=== PATIENT | male | born 1955 | race Caucasian/White ===

== ENCOUNTER → 2017-07-13 | Outpatient (CLI) | payer OTHER | LOC: MRI 07:21 | DX: M16.12 Unilateral primary osteoarthritis, left hip (principal) ==

== ENCOUNTER 2017-08-02 05:21 | Inpatient (IN) | payer OTHER ==
[2017-07-27 13:01] LABS: HEMATOCRIT 42.9 % (42.0-52.0); HEMOGLOBIN 14.9 gm/dL (14.0-18.0); MCH 30.1 pg (26.0-34.0); MCHC 34.6 g/dL (28.0-37.0); MCV 86.9 fL (80.0-100.0); RBC 4.94 mil/uL (4.50-6.00); RDW 15.1 % (10.5-14.5)
[2017-07-27 13:06] LABS: ALBUMIN 4.1 g/dL (3.4-5.0); CALCIUM 9.5 mg/dL (8.5-10.1); CREATININE 0.8 mg/dL (0.7-1.3); POTASSIUM 4.5 mmol/L (3.5-5.1)
[2017-07-27 13:12] LABS: URINE BILIRUBIN NEGATIVE (Negative); URINE BLOOD TRACE (Negative); URINE COLOR YELLOW; URINE GLUCOSE-RANDOM* NEGATIVE (Negative); URINE KETONES NEGATIVE (Negative); URINE NITRITE NEGATIVE (Negative); URINE PROTEIN (DIPSTICK) NEGATIVE (Negative); URINE UROBILINOGEN 0.2 E.U./dl (0.2-1.0)
[2017-07-27 13:14] LABS: INR 3.2; PROTIME 32.5 Seconds (9.3-11.4)
[2017-07-29 01:11] LABS: GLYCOHEMOGLOBIN (HGB A1C) 7.7 % (4.8-5.6)
[2017-08-02] VITALS (12 sets, daily range): BP systolic 95–135; BP diastolic 51–74
[~2017-08-02] VITALS: Ht 193 cm; Wt 117.9 kg
--- NOTE | ~2017-08-02 | HC ---
[facility] [place] [address] CONSULTATION Name: HEDY LABOY Room #: 412-P [facility] IN M.R.#: [id number] Admission: 08/02/17 Attend Phys: Guru Nieves MD Discharge: Date of : 55 Report #: [id number] THIS REPORT FOR: //name// CC: CLARK Nieves HISTORY OF PRESENT ILLNESS: The patient is a 61-year-old white male with history of left hip severe degenerative arthritis, unresponsive to conservative measures. He underwent left total hip arthroplasty on 08/02/2017 and is allowed weightbearing as tolerated. He has multiple medical comorbidities as noted above. We are seeing him in rehabilitation medicine consultation. PAST MEDICAL HISTORY: Mechanical aortic valve replacement, history of coronary artery disease with stent x 9, history of hypertension. He had an anterior cervical diskectomy and fusion, noninsulin dependent diabetes mellitus, right great toe partial amputation secondary to osteomyelitis. He had a seizure due to a contrast reaction per report. MEDICATIONS: Please see the full medication listing. ALLERGIES: SULFA. FAMILY HISTORY: Noncontributory. SOCIAL HISTORY: House with his , 4 steps in and then 17 steps up to the full bathroom. There is a half bathroom on the ground floor but no bedroom. 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 The patient premorbidly was ambulatory without gait aids. 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 REVIEW OF SYSTEMS: Did not offer any current complaints of chest pain, shortness of breath or abdominal discomfort. Some pain involving the left hip as expected. He notes he has decreased sensation in distal lower extremities with his diabetic neuropathy. PHYSICAL EXAMINATION: GENERAL: A 61-year-old white male in no obvious distress. VITAL SIGNS: Last recorded temperature 98.3, pulse 85, respirations 18, blood pressure 101/55. The patient is alert, pleasant. HEENT: Appeared to be benign. NEUROLOGIC: Cranial nerves grossly intact. Facies are symmetric. He has functional range of motion of both upper extremities without obvious focal weakness. Midline sternal incision is well healed. Left hip is dressed, ____ is in place. There is no focal calf swelling. He has the prior right great toe partial amputation. He has decreased sensation of the distal lower extremities with decreased proprioception. He is min assist with sit to stand. Gait was 70 feet min assist with a front-wheeled walker. He has not attempted steps yet. [address] [address] CONSULTATION Name: NARDAHEDY Carlton Room #: 412-P [facility] IN [facility].#: [id number] Admission: 08/02/17 Attend Phys: Guru Nieves MD Discharge: Date of : 55 Report #: [id number] ASSESSMENT: A 61-year-old white male with the following problem list: 1. Left hip degenerative arthritis, status post left total hip arthroplasty 08/02/2017, weightbearing as tolerated. 2. Ugn-njxowlb-drenggokr diabetes mellitus with premorbid peripheral neuropathy. 3. Right great toe partial amputation secondary to prior osteomyelitis. 4. Coronary artery disease with stenting x 9. 5. Prior mechanical aortic valve replacement. 6. History of seizure x 1. 7. Anterior cervical diskectomy with fusion. PLAN: Therapy evaluations continue. Insurance will be checked regarding a short acute in-hospital inpatient rehabilitation stay to further maximize his functional independence to get him back home. He does have the multiple medical comorbidities as noted above. Goal will be to further improve his independence. He needs to be able to go up and down steps independently. He is very motivated to work in therapies. Insurance will be checked and we will be glad to follow regarding his rehabilitation therapy needs. By: [id number] Jamar Villa MD /
--- NOTE | ~2017-08-02 | O ---
[facility] [place] [address] OPERATIVE REPORT Name: LABOYHEDY Room #: 150-3 ADM IN M.R.#: [id number] Admission: 08/02/17 Attend Phys: Guru Nieves MD Discharge: Date of : 55 Report #: [id number] THIS REPORT FOR: //name// CC: CLARK Nieves DATE OF SERVICE: 08/02/2017 DATE OF SERVICE: 08/02/2017 PREOPERATIVE DIAGNOSIS: Left hip degenerative joint disease, severe. POSTOPERATIVE DIAGNOSIS: Left hip degenerative joint disease, severe. PROCEDURE: Left total hip arthroplasty. SURGEON: Guru Nieves MD WEB DESIGN SPECIALIST: TSERING Trotter ANESTHETIC: General. INDICATIONS: See hospital H and P. IMPLANTS UTILIZED: We used a Vidal hip system Secur-Fit Max hip stem, 132 degree neck angle, size 9. We used a +5, 36 outer diameter Biolox head. We used a Tritanium hemispherical solid back shell 58 outer diameter and a Trident X3 elevated rim insert. DESCRIPTION OF PROCEDURE: After adequate general anesthesia had been obtained, the patient was placed in lateral decubitus position with left hip up. Left hip and lower extremity was prepped and draped in the usual meticulous sterile fashion. A posterolateral incision was made, subQ divided sharply. Hemostasis obtained with electrocautery. The IT band and gluteal fascia was divided. This layer was retracted with a Charnley retractor. Hip was internally rotated and external rotators were detached at their insertion, tagged and retracted posteriorly. Capsular incision was made. It likewise was tagged and retracted posteriorly. Hip was dislocated. The soft tissues were removed from the base of the neck. A starter awl was placed at the base of neck and advanced to the canal. Canal was sequentially reamed to a size 8. Neck osteotomy performed. We then directed attention to the acetabulum. The acetabulum was circumferentially exposed. Labrum was excised. We sequentially reamed the acetabulum to a size 56, trialled 56 and got a good press fit, so we reamed to 57, irrigated copiously and then placed the shell in the appropriate orientation. The cap screw was placed. Hip was irrigated. Liner was impacted [address] [address] OPERATIVE REPORT Name: LABOYHEDY Room #: 150-3 ADM IN M.R.#: [id number] Admission: 08/02/17 Attend Phys: Guru Nieves MD Discharge: Date of : 55 Report #: [id number] into position with the elevated portion posteriorly. The patient was noted to have osteophytes both anteriorly and posteroinferiorly. These were removed with the saw. Attention was redirected to the femur. The femur was sequentially broached to a size 8. We noticed that there was some was torsional instability, so we reamed up to a 9 and then used a 9 broach and got a good press fit with good torsional stability. Hip was reduced and had good stability parameters, so we irrigated copiously and then impacted the stem into position and impacted the head into position. Hip was then reduced. Meticulous hemostasis was obtained. The capsule and external rotators were reattached to the trochanter by placing drill holes in the trochanter and tying them over a bone bridge. IT band gluteal fascia was closed with combination of interrupted lfgxtw-mf-iufuc #1 Vicryl as well as running #1 Tevdek. SubQ closed with 2-0 Monocryl, skin closed with silvia. Sterile compressive dressing was applied. By: 1354 [id number] Guru Nieves MD /nt
[~2017-08-02 05:21] MED LIST: ASPIR 8181 MG PO; ATORVASTATIN CA40 MG PO; CELEBREX 200 M200 M1 PO; COREG3.125 MG PO; COUMADIN 5 MG TA5 M1 PO; FRAGMIN SQ; GLYBURIDE 2.52.5 MG PO; LISINOPRIL2.5 MG PO; METFORMIN HCL500 MG PO; NITROGLYCERIN0.4 MG SUBLING; NORCO 5-325 TA1 EACH PO; PLAVIX 75 MG TA75 M1 PO; PROTONIX40 M1 PO
[2017-08-02 10:22] LABS: PROTIME 10.4 Seconds (9.3-11.4)
[2017-08-02 20:25] LABS: HEMATOCRIT 37.4 % (42.0-52.0); MCH 30.6 pg (26.0-34.0); MCHC 34.8 g/dL (28.0-37.0); MCV 87.8 fL (80.0-100.0); RBC 4.26 mil/uL (4.50-6.00); RDW 14.7 % (10.5-14.5); WBC 7.8 thou/uL (4.0-11.0)
[2017-08-03] VITALS: BP 98/60
[2017-08-03 04:00] VITALS: BP 98/48
[2017-08-03 06:14] LABS: HEMATOCRIT 35.9 % (42.0-52.0); MCH 29.9 pg (26.0-34.0); MCHC 33.5 g/dL (28.0-37.0); MCV 89.4 fL (80.0-100.0); RBC 4.02 mil/uL (4.50-6.00); WBC 6.7 thou/uL (4.0-11.0)
[2017-08-03 06:28] LABS: CALCIUM 8.5 mg/dL (8.5-10.1); CREATININE 1.2 mg/dL (0.7-1.3); MAGNESIUM 1.6 mg/dL (1.8-2.4); POTASSIUM 4.9 mmol/L (3.5-5.1); PROTIME 10.2 Seconds (9.3-11.4)
[2017-08-03 07:52] VITALS: BP 101/55
[2017-08-03 20:00] VITALS: BP 121/57
[2017-08-04 04:00] VITALS: BP 110/59
[2017-08-04 06:19] LABS: HEMATOCRIT 32.9 % (42.0-52.0); HEMOGLOBIN 11.3 gm/dL (14.0-18.0); MCH 30.2 pg (26.0-34.0); MCHC 34.4 g/dL (28.0-37.0); MCV 87.9 fL (80.0-100.0); RBC 3.75 mil/uL (4.50-6.00); RDW 14.8 % (10.5-14.5); WBC 6.1 thou/uL (4.0-11.0)
[2017-08-04 06:23] LABS: PROTIME 10.7 Seconds (9.3-11.4)
[2017-08-04 07:55] VITALS: BP 126/59
[2017-08-04] MEDS ORDERED: ENOXAPARIN30 MG/0.1 SUBQ (15:12)
[2017-08-04] MEDS ORDERED: COUMADIN 4 MG TA4 M1 PO (15:13)
[2017-08-04] MEDS ORDERED: COLACE 100 MG100 MG PO (15:22)
[2017-08-04] MEDS ORDERED: LACTULOSE20 GM/30 M PO (15:22)
== END 2017-08-04 15:52 | DRG 470 ==
LOC: TBA 05:21 → PRE 07:56 → 4N 16:35 → ENTRNSPT 08-04 15:38 → EDTRNSPTSTS 08-04 15:46 → 4N 08-04 15:52
PROVIDERS: Internal Medicine; Orthopaedic Surgery
PROC: 0SRB03Z Replacement of Left Hip Joint with Ceramic Synthetic Substitute, Open Approach (ICD-10-PCS; principal; 2017-08-02)
DX: M16.12 Unilateral primary osteoarthritis, left hip (principal); I25.10 Atherosclerotic heart disease of native coronary artery without angina pectoris; I10 Essential (primary) hypertension; E11.9 Type 2 diabetes mellitus without complications; K59.00 Constipation, unspecified; Z95.2 Presence of prosthetic heart valve; Z95.5 Presence of coronary angioplasty implant and graft; Z89.411 Acquired absence of right great toe; Z88.2 Allergy status to sulfonamides; Z98.1 Arthrodesis status
CPT/HCPCS: 10790; 50010; 50101; 50382; 50414; 50455; 50612; 50855; 50939; 51412; 51771; 53000; 55388; 56521; 56525; 56527; 56530; 57095; 62110; 62900; 70005

== ENCOUNTER 2017-08-04 10:20 | Inpatient (IN) | payer OTHER ==
[~2017-08-04] VITALS: Ht 193 cm; Wt 122.0 kg
--- NOTE | ~2017-08-04 | HC ---
[facility] [place] [address] CONSULTATION Name: HEDY LABOY Brandt Room #: 516-1 ADM IN M.R.#: [id number] Admission: 08/04/17 Attend Phys: Jamar Villa MD Discharge: Date of : 55 Report #: [id number] THIS REPORT FOR: //name// CC: Jamar PHIPPS DATE OF SERVICE: 08/06/2017 Neurobehavioral Status Exam: ATTENDING PHYSICIAN: Jamar Villa MD. EMBOSSING UNIT OPERATOR: Randall Nixon, PhD. CLINICAL PRESENTATION: The patient is a 61-year-old male admitted to the rehab unit at [facility] for comprehensive inpatient rehabilitation program to improve functional mobility and activities of daily living and self-care secondary to impairment as a result of total hip arthroplasty. The patient carries a diagnoses that includes eax-pfefvmd-ytngwklvh diabetes mellitus with peripheral neuropathy, right greater toe partial amputation secondary to prior osteomyelitis, coronary artery disease with stenting x 9, prior mechanical aortic valve replacement, history of seizure x 1 and an anterior cervical diskectomy with . A complete description of his medical condition and history can be found in his medical record. Neuropsychological consultation was requested to provide assistance in the assessment of cognitive and emotional status and to provide recommendations and services. Prior to this most recent admission, the patient was living independently with his in their home. He has two children. 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 He is a college graduate. The patient does not report a history of treatment for anxiety or depression. TECHNIQUES UTILIZED: Clinical interview, review of medical records, staff consultation and behavioral observation, mini mental status exam 2 standard version and clock drawing. EXAMINATION FINDINGS: The patient was alert and cooperative with the assessment. He accurately described events surrounding his admission. There is no evidence of aphasia. His thoughts are logical and goal oriented. There is no evidence of thought disorder. He described his symptoms to include difficulty with sleep and appetite. However, sleep and appetite are both reported as improving. His energy level is reduced. He does not indicate subjective anxiety or depression. He also does not report difficulty with cognitive function. [facility] [address] [place] [address] CONSULTATION Name: NARDAHEDY Room #: 516-1 [facility] IN .R.#: [id number] Admission: 08/04/17 Attend Phys: Jamar Villa MD Discharge: Date of : 55 Report #: [id number] His responses on the MMSE 2 brief version suggest some mild impairment in cognition with deficits in memory and visual spatial organization and writing a sentence. He was at 13 of 16 on the MMSE 2 brief version, which is a T score of 30. His performance on the MMSE 2 standard version was raw score of 25 and a T score of 35, which is a percentile rank of 7 in the borderline range. The patient's clock drawing is within normal limits. His writing of a sentence was not logical sentence and difficulty with drawing was suggested. The patient appears to be presenting with a mild impairment in cognition that can be associated with this further recovery from his hip replacement. At this time, difficulty with memory and visual spatial organization are suggested. DIAGNOSTIC IMPRESSION: Mild neurocognitive disorder, unspecified, without behavior disorder. RECOMMENDATIONS: The patient will benefit from increased assistance upon his return home with the management of medication. Driving should be monitored before a complete return to instrumental activities of daily living. Use of compensatory strategies may be of benefit to assist in the management of memory. Thank you very much for allowing me to provide the consultation on this patient. By: 1405 [id number] Randall Nixon, PhD /nt
--- NOTE | ~2017-08-04 | PLAN ---
[facility] [place] [address] REHAB UNIT PLAN OF CARE Name: LABOYHEDY Room #: 516-1 ADM IN M.R.#: [id number] Admission: 08/04/17 Attend Phys: Jamar Villa MD Discharge: Date of : 55 Report #: [id number] THIS REPORT FOR: //name// CC: Jamar PHIPPS DATE OF SERVICE: 08/06/2017 PROGRESS NOTE/OVERALL PLAN OF CARE The patient was seen earlier. Last recorded blood pressure 110/54, last recorded temperature 98.8, pulse 95, respirations 16. He was sleepy, but would arouse. Left hip dressing appeared dry. Transfers contact guard. Gait contact guard is 60 feet front-wheeled walker. Upper body dressing is supervision with lower body dressing min assist. ASSESSMENT: 1. Left hip degenerative arthritis, status post left total hip arthroplasty 08/02/2017, weightbearing as tolerated. 2. Uze-cwgiqov-ayqfdnzzm diabetes mellitus with premorbid peripheral neuropathy. 3. Right great toe partial amputation secondary to prior osteomyelitis. 4. Coronary artery disease with stenting x 9. 5. Prior mechanical aortic valve replacement. 6. History of seizure x 1. 7. Anterior cervical diskectomy with fusion. PLAN: The overall plan of care is based on the preadmission screen, post-admission physician evaluation and information garnered from therapy assessments. 1. Estimated length of stay is probably 7-10 days depending on progress. 2. Medical prognosis is reasonably good. 3. Anticipated interventions includes the interdisciplinary acute inpatient rehabilitation program with PT and OT, rehab nursing regarding medication management, skin care prophylaxis, bowel and bladder issues and nursing education. 4. Anticipated functional outcomes would be for the patient to become modified independent with transfers, mobility and ADLs at a walker level. 5. Discharge destination is back home with family. 6. Expected therapy by discipline includes PT and OT 1-1/2 hours per day each five days a week throughout the duration of the acute inpatient rehabilitation stay. By: 1142 2149 Jamar Villa MD /
--- NOTE | ~2017-08-04 | H ---
[facility] [place] [address] HISTORY AND PHYSICAL Name: NARDAHEDY Room #: 515-P [facility] IN ..#: [id number] Admission: 08/04/17 Attend Phys: Jamar Villa MD Discharge: Date of : 55 Report #: [id number] THIS REPORT FOR: //name// CC: Jamar PHIPPS DATE OF SERVICE: 08/05/2017 HISTORY OF PRESENT ILLNESS: The patient is a 61-year-old white male with history of left hip severe degenerative arthritis, unresponsive to conservative measures. He underwent a left total hip arthroplasty on 08/02/2017 and is allowed weightbearing as tolerated. He has multiple medical comorbidities as noted below. He has been admitted now for acute in-hospital inpatient rehabilitation. PAST MEDICAL HISTORY: Includes mechanical aortic valve replacement, history of coronary artery disease with stent x9, history of hypertension. He had an anterior cervical diskectomy and fusion, non-insulin dependent diabetes mellitus, right great toe partial amputation secondary to osteomyelitis. He had a seizure due to contact reaction per report. MEDICATIONS: Please see the full medication listing. Each of these was individually reconciled upon admission and include the herbals, vitamin supplements, etc. ALLERGIES: SULFA. FAMILY HISTORY: Noncontributory. SOCIAL HISTORY: Lives in a house with his , 4 steps in and then 17 steps up to the full bathroom. There is a half bathroom on the ground floor, but no bedroom. 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 The patient premorbidly was ambulatory without gait aids. 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 REVIEW OF SYSTEMS: No complaints of chest pain, shortness of breath, abdominal discomfort. He had some pain involving the left hip as expected. He does have the premorbid decreased sensation of his distal lower extremities with his diabetic neuropathy. Did not offer any complaints of headache or bowel or bladder changes. PHYSICAL EXAMINATION: GENERAL: A 61-year-old pleasant white male in no obvious distress. The patient is alert, pleasant. VITAL SIGNS: Temperature 98.5, pulse 91, respirations 12, blood pressure 86/53. HEENT: Appeared to be benign. Cranial nerves are [place] [address] HISTORY AND PHYSICAL Name: HEDY LABOY Brandt Room #: 515-[facility] IN [facility].#: [id number] Admission: 08/04/17 Attend Phys: Jamar Villa MD Discharge: Date of : 55 Report #: [id number] symmetric. CHEST: Sounded clear to auscultation. Midline sternal incision is intact. CARDIOVASCULAR: Sounded regular rate and rhythm. ABDOMEN: Bowel sounds positive, nontender. GENITOURINARY AND RECTAL: Deferred. EXTREMITIES: He has functional range of motion of both upper extremities without focal weakness. Lower extremities, he has left hip, which is dressed. There is no focal calf swelling. Left ankle dorsiflexion is at least 4+/5. Left lower extremity strength is probably 4/5. Some discomfort with testing. Right lower extremity strength is a grade 4+/5. He does have decreased distal sensation of the distal lower extremities with decreased proprioception. He has been min assist with basic functional mobility issues and short distance ambulation. ASSESSMENT: A 61-year-old white male with the following problem list: 1. Left hip degenerative arthritis, status post left total hip arthroplasty on 08/02/2017, weightbearing as tolerated. 2. Peg-uuibdyn-jckprlzfe diabetes mellitus with premorbid peripheral neuropathy. 3. Right great toe partial amputation secondary to prior osteomyelitis. 4. Coronary artery disease with stenting x 9. 5. Prior mechanical aortic valve replacement. 6. History of seizure x 1. 7. Anterior cervical diskectomy with effusion. PLAN: The patient is admitted for acute in-hospital inpatient rehabilitation. From a post-admission physician evaluation perspective, there are no relevant changes since the preadmission screening. Please see the above review of prior and current medical and functional conditions and comorbidities. Please see the patient's previous and current functional status. As far as risk of complications, the patient has multiple medical comorbidities as noted above. Initial plan of care involves the interdisciplinary acute inpatient rehabilitation program with the goal of maximizing the patient's functional independence. Measurable functional goals would be for him to become modified independent with transfers, mobility, ADLs, so that he can return back to the home setting. Prognosis is reasonably good. We would anticipate a length of stay of probably around 7-10 days, pending progress. Potential barriers would include his multiple medical comorbidities and decreased functional status. By: 0920 0949 Jamar Villa MD /
[2017-08-04] MEDS ORDERED: ENOXAPARIN30 MG/0.1 SUBQ (15:12)
[2017-08-04] MEDS ORDERED: COUMADIN 4 MG TA4 M1 PO (15:13)
[2017-08-04] MEDS ORDERED: COLACE 100 MG100 MG PO (15:22)
[2017-08-04] MEDS ORDERED: LACTULOSE20 GM/30 M PO (15:22)
[2017-08-04 16:00] VITALS: BP 86/53
[2017-08-04 22:41] VITALS: BP 117/68
[2017-08-05 06:20] LABS: HEMATOCRIT 31.8 % (42.0-52.0); HEMOGLOBIN 11.2 gm/dL (14.0-18.0); MCH 31.1 pg (26.0-34.0); MCHC 35.1 g/dL (28.0-37.0); MCV 88.4 fL (80.0-100.0); RBC 3.6 mil/uL (4.50-6.00); RDW 14.8 % (10.5-14.5); WBC 6.2 thou/uL (4.0-11.0)
[2017-08-05 06:31] LABS: INR 1.2; PROTIME 12.2 Seconds (9.3-11.4)
[2017-08-05 06:32] LABS: CALCIUM 8.7 mg/dL (8.5-10.1); POTASSIUM 4.5 mmol/L (3.5-5.1)
[2017-08-05 08:00] VITALS: BP 117/59
[2017-08-06 06:13] LABS: HEMOGLOBIN 11.1 gm/dL (14.0-18.0)
[2017-08-06 06:25] LABS: INR 1.3; PROTIME 13.5 Seconds (9.3-11.4)
[2017-08-06 08:59] VITALS: BP 129/57
[2017-08-06 20:58] VITALS: BP 125/64
[2017-08-07 05:00] LABS: INR 1.5; PROTIME 15.4 Seconds (9.3-11.4)
[2017-08-07 08:20] VITALS: BP 89/53
[2017-08-07 19:47] VITALS: BP 118/77
[2017-08-08 04:07] LABS: INR 1.9; PROTIME 19.4 Seconds (9.3-11.4)
[2017-08-08 09:41] VITALS: BP 112/58
[2017-08-08 19:26] VITALS: BP 138/68
[2017-08-09 04:32] LABS: INR 2.4; PROTIME 24.2 Seconds (9.3-11.4)
[2017-08-09 08:30] VITALS: BP 98/58
[2017-08-09 16:15] VITALS: BP 117/68
[2017-08-09 20:30] VITALS: BP 132/58
[2017-08-10 04:09] LABS: ABSOLUTE NEUTROPHILS 3.1 thou/uL (1.4-8.2); BASOPHILS 0.4 % (0.0-2.0); EOSINOPHILS 1.7 % (0.0-3.0); HEMATOCRIT 34.1 % (42.0-52.0); HEMOGLOBIN 11.6 gm/dL (14.0-18.0); LYMPHOCYTES 28.6 % (24.0-44.0); MCH 29.7 pg (26.0-34.0); MCHC 34.1 g/dL (28.0-37.0); MCV 87.3 fL (80.0-100.0); MONOCYTES 11.2 % (1.0-8.0); PLATELET COUNT 239 thou/uL (150-400); POLYS 58.1 % (36.0-66.0); RDW 14.8 % (10.5-14.5); WBC 5.4 thou/uL (4.0-11.0)
[2017-08-10 04:14] LABS: MANUAL DIFF NO
[2017-08-10 04:17] LABS: PROTIME 30.5 Seconds (9.3-11.4)
[2017-08-10 04:23] LABS: ALBUMIN 3.1 g/dL (3.4-5.0); CALCIUM 8.9 mg/dL (8.5-10.1); CREATININE 1.1 mg/dL (0.7-1.3); MAGNESIUM 1.8 mg/dL (1.8-2.4); POTASSIUM 4.6 mmol/L (3.5-5.1); TOTAL BILIRUBIN 0.5 mg/dL (<0.1-1.0); TOTAL PROTEIN 6.8 g/dL (6.4-8.2)
[2017-08-10 07:20] VITALS: BP 110/54
[2017-08-10 08:10] VITALS: BP 110/54
[2017-08-10 08:11] VITALS: BP 110/54
[2017-08-10 10:24] VITALS: BP 110/54
[2017-08-10] MEDS ORDERED: VITAMIN D1000 UNI1 PO (12:02)
[2017-08-10] MEDS ORDERED: COUMADIN 5 MG TA5 M1 PO (12:02)
[2017-08-10] MEDS ORDERED: ZANAFLEX4 MG PO (12:02)
[2017-08-10] MEDS ORDERED: BISACODYL SUPP10 MG RECTAL (12:02)
[2017-08-10] MEDS ORDERED: MIRALAX17 GM PO (12:02)
[2017-08-10] MEDS ORDERED: VITAMIN B-12500 MCG PO (12:02)
== END 2017-08-10 13:59 | disposition home health service (06) | DRG 561 ==
LOC: ENTRNSPT 08-10 13:59
PROVIDERS: Nurse Practitioner; Physical Medicine & Rehabilitation
DX: Z47.1 Aftercare following joint replacement surgery (principal); M16.12 Unilateral primary osteoarthritis, left hip; E11.42 Type 2 diabetes mellitus with diabetic polyneuropathy; G31.84 Mild cognitive impairment of uncertain or unknown etiology; I25.10 Atherosclerotic heart disease of native coronary artery without angina pectoris; I10 Essential (primary) hypertension; M62.838 Other muscle spasm; K59.00 Constipation, unspecified; Z96.642 Presence of left artificial hip joint; K21.9 Gastro-esophageal reflux disease without esophagitis; E53.8 Deficiency of other specified B group vitamins; Z98.1 Arthrodesis status; Z89.411 Acquired absence of right great toe; Z95.2 Presence of prosthetic heart valve; Z95.5 Presence of coronary angioplasty implant and graft; Z88.2 Allergy status to sulfonamides
CPT/HCPCS: 10112

== ENCOUNTER → 2018-08-23 | Outpatient (CLI) | payer OTHER ==
[~2018-08-23] MED LIST changes: +ASPIRIN81 M2 PO; +BISACODYL SUPP10 MG RECTAL; +CARDIZEM CD240 MG PO; +COLACE 100 MG100 MG PO; +COUMADIN 4 MG TA4 M1 PO; +ENOXAPARIN30 MG/0.1 SUBQ; +LACTULOSE20 GM/30 M PO; +MIRALAX17 GM PO; +PACERONE 200 M200 M1 PO; +VITAMIN B-12500 MCG PO; +VITAMIN D1000 UNI1 PO; +ZANAFLEX4 MG PO
[2018-08-23 09:01] LABS: HEMATOCRIT 42.6 % (42.0-52.0); HEMOGLOBIN 14.5 gm/dL (14.0-18.0); MCH 30.2 pg (26.0-34.0); MCHC 34.1 g/dL (28.0-37.0); MCV 88.4 fL (80.0-100.0); RBC 4.82 mil/uL (4.50-6.00); RDW 14.7 % (10.5-14.5)
[2018-08-23 09:24] LABS: ALBUMIN 3.9 g/dL (3.4-5.0); CALCIUM 10.1 mg/dL (8.5-10.1); CREATININE 1.1 mg/dL (0.7-1.3); POTASSIUM 4.8 mmol/L (3.5-5.1); TOTAL BILIRUBIN 0.6 mg/dL (<0.1-1.0); TOTAL PROTEIN 7.9 g/dL (6.4-8.2)
== END ==
LOC: LABMALL 08:30
PROVIDERS: Internal Medicine Cardiovascular Disease
DX: I48.91 Unspecified atrial fibrillation (principal); I25.10 Atherosclerotic heart disease of native coronary artery without angina pectoris; R91.8 Other nonspecific abnormal finding of lung field; Z95.2 Presence of prosthetic heart valve

== ENCOUNTER 2018-09-01 06:34 | Observation (INO) | payer OTHER ==
[~2018-09-01] VITALS: Ht 195.6 cm; Wt 118.8 kg
[2018-09-01] VITALS (11 sets, daily range): BP systolic 100–124; BP diastolic 57–72
--- NOTE | ~2018-09-01 | P ---
[facility] [place] [address] PROCEDURE REPORT Name: HEDY LABOY Room #: 200-I [facility] Tono Gaona#: [id number] Admission: 09/01/18 Attend Phys: Joe Moon MD Discharge: 09/02/18 Date of : 55 Report #: [id number] THIS REPORT FOR: //name// CC: FAM unknown Joe ASHER DATE OF SERVICE: 09/01/2018 PREOPERATIVE DIAGNOSES: 1. Atrial fibrillation. 2. Typical atrial flutter. PROCEDURES PERFORMED: 1. Atrial fibrillation ablation, CPT code 21738. 2. 3D mapping EP, CPT code 60469. 3. Intracardiac echo, CPT code 50655. 4. Focal ablation, CPT code 04473. HISTORY: The patient is a 62-year-old with history of atrial fibrillation, prior endocarditis, status post mechanical aortic valve replacement in 2001 as well as diabetes and coronary artery disease with most recent drug-eluting stent to the PDA in June 2018 who has failed antiarrhythmic drugs and is here for an ablation. ANESTHESIA: The patient underwent general anesthesia with no anesthesia related complications. DESCRIPTION OF PROCEDURE: The patient underwent informed consent. We discussed the details of the procedure including the risks, which include, but not limited to bleeding, vascular damage, cardiac perforation as well as stroke or UT. He understood these risks and is willing to proceed. Given his mechanical aortic valve, we did perform his ablation with a therapeutic INR of 3.9. The patient also received IV antibiotics given his mechanical aortic valve. Next, I obtained access to the right femoral vein x 3, placing an 8-Vincentian, 9-Vincentian and 7-Vincentian short sheath using the modified Seldinger technique. Next, under fluoroscopy, I placed a decapolar catheter easily in the coronary sinus and an intracardiac ultrasound camera into the right atrium. Intracardiac ultrasound was performed and 3D geometry using [employer] Systemsund was created and this was merged with the patient's cardiac CT scan. Next, the patient was systemically heparinized and using an SL1 sheath and a Boston needle, a transseptal was performed. This was straightforward. At baseline, the patient was in atrial flutter with a ventricular cycle length of 565 milliseconds, QRS duration 85 milliseconds and a QT interval of 365 milliseconds. Once in the left atrium, I used the Lasso catheter to create a 3D geometry of the left atrium and all veins [address] [address] PROCEDURE REPORT Name: HEDY LABOY Room #: 200-I [facility] Tono Gaona#: [id number] Admission: 09/01/18 Attend Phys: Joe Moon MD Discharge: 09/02/18 Date of : 55 Report #: [id number] remained active. Next, I exchanged the SL1 sheath for the cryo sheath and placed the cryoablation catheter into the left atrium. The left superior pulmonary vein underwent a total of 3 freezes. The first freeze was stopped at 80 seconds because of low temperatures. The second freeze was of 4 minutes' duration, and the vein isolated within 70 seconds. I performed a second 4-minute freeze as well. I then turned my attention to the left inferior pulmonary vein. I performed a 4-minute and a 3-minute freeze. The left inferior vein isolated within 26 seconds of the first freeze. The right superior pulmonary vein underwent a 4-minute and a 3-minute freeze as well. This vein isolated during the first freeze at 29 seconds. I then turned my attention to the right inferior pulmonary vein. This vein underwent a 4-minute and a 3-minute freeze. This vein isolated within 60 seconds of the first freeze. There was also a right middle pulmonary vein that was quite small and I performed a 4-minute freeze in this vessel and this was isolated as well. Next, I created a repeat voltage map of the left atrium and all the veins were isolated and the isolation was in the form of wide circumferential ablation of the left atrium. I therefore pulled the cryo sheath and ablation catheter into the right atrium. Atrial flutter ablation: The patient presented in atrial flutter with a proximal to distal activation along the coronary sinus catheter. I performed entrainment from the tricuspid annulus at 6'clock and the post-pacing interval minus tachycardia cycle length was 20 milliseconds consistent with cavotricuspid isthmus dependent flutter. Therefore, ablation was performed at 6 o'clock along the tricuspid annulus using an 8 mm Biosense Whipple ablation catheter and a ramp sheath. Ablation was performed at 70 pal and 60 degrees. A continuous drag lesion was performed and there was acute termination of the atrial flutter. The transisthmus conduction time was 140 milliseconds with an activation sequence consistent with bidirectional block. As such, the procedure was concluded. Post ablation, he was in sinus rhythm with a sinus cycle length of 870 milliseconds, SD interval 270 milliseconds, QRS duration 80 milliseconds, QT interval 421 milliseconds. As such, protamine was administered, and once the ACT was within acceptable range, catheters and sheaths were pulled and hemostasis was obtained. I did perform a pxtadx-ps-qtvss suture to the right groin given his anticoagulation status and there were no bleeding complications. CONCLUSIONS: 1. Successful atrial fibrillation ablation with isolation of the pulmonary veins. 2. Successful atrial flutter ablation with evidence of bidirectional block. By: [id number] Joe Moon MD /tushar
[~2018-09-01 06:34] MED LIST changes: -ASPIRIN81 M2 PO; -CARDIZEM CD240 MG PO; -PACERONE 200 M200 M1 PO
[2018-09-01 07:11] LABS: ABSOLUTE NEUTROPHILS 4.3 thou/uL (1.4-8.2); BASOPHILS 0.7 % (0.0-2.0); EOSINOPHILS 1.2 % (0.0-3.0); HEMATOCRIT 43.7 % (42.0-52.0); HEMOGLOBIN 14.9 gm/dL (14.0-18.0); LYMPHOCYTES 21.1 % (24.0-44.0); MCH 30.2 pg (26.0-34.0); MCHC 34.1 g/dL (28.0-37.0); MCV 88.4 fL (80.0-100.0); MONOCYTES 11.9 % (1.0-8.0); PLATELET COUNT 232 thou/uL (150-400); POLYS 65.1 % (36.0-66.0); RBC 4.94 mil/uL (4.50-6.00); RDW 14.9 % (10.5-14.5); WBC 6.6 thou/uL (4.0-11.0)
[2018-09-01] MEDS ORDERED: GLYBURIDE 2.52.5 MG PO (07:13)
[2018-09-01] MEDS ORDERED: PACERONE 200 M200 M1 PO (07:15)
[2018-09-01] MEDS ORDERED: CARDIZEM CD240 MG PO (07:16)
[2018-09-01] MEDS ORDERED: PLAVIX 75 MG TA75 M1 PO (07:16)
[2018-09-01] MEDS ORDERED: ASPIRIN81 M2 PO (07:17)
[2018-09-01 07:27] LABS: APTT 42.7 Seconds (24.5-32.8); CALCIUM 9.8 mg/dL (8.5-10.1); CREATININE 1.2 mg/dL (0.7-1.3); INR 3.9; POTASSIUM 4.3 mmol/L (3.5-5.1); PROTIME 38.7 Seconds (9.3-11.4)
[2018-09-01 07:33] LABS: TOTAL BILIRUBIN 0.7 mg/dL (<0.1-1.0)
[2018-09-02 00:14] VITALS: BP 119/68
[2018-09-02 03:45] VITALS: BP 118/71
[2018-09-02 04:20] LABS: ABSOLUTE NEUTROPHILS 6.2 thou/uL (1.4-8.2); BASOPHILS 0.1 % (0.0-2.0); HEMATOCRIT 38.9 % (42.0-52.0); LYMPHOCYTES 6.3 % (24.0-44.0); MCH 29.6 pg (26.0-34.0); MCHC 33.1 g/dL (28.0-37.0); MCV 89.3 fL (80.0-100.0); MONOCYTES 6.8 % (1.0-8.0); PLATELET COUNT 191 thou/uL (150-400); POLYS 86.8 % (36.0-66.0); RBC 4.35 mil/uL (4.50-6.00); RDW 14.9 % (10.5-14.5); WBC 7.1 thou/uL (4.0-11.0)
[2018-09-02 04:22] LABS: HEMOGLOBIN 12.9 gm/dL (14.0-18.0)
[2018-09-02 04:30] LABS: CREATININE 1.2 mg/dL (0.7-1.3); POTASSIUM 4.9 mmol/L (3.5-5.1)
[2018-09-02 09:20] VITALS: BP 114/69
== END 2018-09-02 11:09 | disposition home or self-care (01) ==
LOC: CATH 06:34 → 2N 06:42 → CATH 11:28 → 2N 09-02 11:09
PROVIDERS: Internal Medicine Cardiovascular Disease
DX: I48.3 Typical atrial flutter (principal); I48.91 Unspecified atrial fibrillation; I25.10 Atherosclerotic heart disease of native coronary artery without angina pectoris; E11.9 Type 2 diabetes mellitus without complications; Z95.5 Presence of coronary angioplasty implant and graft
CPT/HCPCS: 62110; 62900; 70005

== ENCOUNTER 2019-05-23 06:25 | Observation (INO) | payer OTHER ==
[~2019-05-23] VITALS: Ht 193 cm; Wt 123.4 kg
[2019-05-23] VITALS (11 sets, daily range): BP systolic 115–126; BP diastolic 68–76
--- NOTE | ~2019-05-23 | D ---
[facility] [place] [address] DISCHARGE SUMMARY Name: HEDY LABOY Brandt Room #: 217-[facility] MLizzie.#: [id number] Admission: 05/23/19 ������������������ Attend Phys: Joe Moon MD Discharge: ������������������ Date of : 55 Report #: [id number] THIS REPORT FOR: //name// CC: Joe Moon Physician staff JAMAL KING DISCHARGE DIAGNOSIS: Atypical flutter. PROCEDURE PERFORMED: SVT ablation. HISTORY: The patient is a 63-year-old status post AFib ablation, who has had recurrent atypical flutter, who is here for repeat ablation. He underwent a repeat ablation today, where he was found to have isolation of all 4 pulmonary veins and it appeared that he had a mitral annular flutter. Extensive ablation was performed, creating a line of block from the left inferior pulmonary vein to the mitral annulus and then the coronary sinus was isolated. The patient transitioned to several other flutters that I attempted to ablate but could not completely eliminate. As such, the patient was cardioverted. There were no procedural related complications. HOSPITAL COURSE: The patient was monitored in the CCU overnight. On the day of discharge, the patient was doing well. He denied any chest pain, shortness of breath, fevers or chills. PHYSICAL EXAMINATION: GENERAL: He was in no acute distress. HEART: Regular rate and rhythm. LUNGS: Clear to auscultation bilaterally. ABDOMEN: Soft, nontender. GROIN: Showed no significant bruising or hematoma. His telemetry showed sinus rhythm. As such, he was deemed stable for discharge home. He will continue on his same home medications including his warfarin. His INR today was 2.5. We will increase his amiodarone to 400 mg a day for a week and then decrease it to 200 mg daily. He will follow up with my nurse practitioner in 2 weeks and see me in 3 months. ��������������������������������������������� ���������������������������������������� By: ��������������������������������������������� [id number] Joe Moon MD /nt
[~2019-05-23 06:25] MED LIST changes: +ASPIRIN81 M2 PO; +CARDIZEM CD240 MG PO; +COUMADIN7.5 MG PO; +DILTIAZEM 24HR180 M1 PO; +GLYBURIDE 5 MG T5 M1 PO; +LIPITOR80 MG PO; +PACERONE 200 M200 M1 PO
[2019-05-23] MEDS ORDERED: PHENERGAN 25 MG25 M1 PO (07:21)
[2019-05-23] MEDS ORDERED: ASPIR 8181 M1 PO (07:21)
[2019-05-23 07:38] LABS: HEMOGLOBIN 13.4 gm/dL (14.0-18.0); MCH 29.5 pg (26.0-34.0); MCHC 33.5 g/dL (28.0-37.0); MCV 88.3 fL (80.0-100.0); PLATELET COUNT 220 thou/uL (150-400); RBC 4.53 mil/uL (4.50-6.00); RDW 16.2 % (10.5-14.5)
[2019-05-23 07:54] LABS: CALCIUM 9.2 mg/dL (8.5-10.1); CREATININE 1.3 mg/dL (0.7-1.3); POTASSIUM 4.9 mmol/L (3.5-5.1)
[2019-05-23 07:57] LABS: APTT 38.3 Seconds (24.5-32.8); PROTIME 29.3 Seconds (9.3-11.4)
[2019-05-23 07:59] LABS: INR 2.8
[2019-05-23 08:00] LABS: ALBUMIN 3.4 g/dL (3.4-5.0); TOTAL BILIRUBIN 0.4 mg/dL (<0.1-1.0); TOTAL PROTEIN 7.1 g/dL (6.4-8.2)
[2019-05-23 08:25] LABS: ABSOLUTE NEUTROPHILS 4.1 thou/uL (1.4-8.2); ANISOCYTOSIS 1+; METAMYELOCYTES 2 %
--- NOTE | 2019-05-23 18:20 | NUR ---
Received pt from post op, ablation done. VS taken and monitored, stable) Admission completed, diet changed to regular, well tolerated. Pt is under observation. Dressing on the right groin is intact and no drainage or bleeding has been noted. With FC, patent draining light yellow urine Pt at bed rest for 6 hours (2 pm to 8pm) can ambulate 8pm onwards and FC removed as well. No signs or verbalizations of distress has been noted. Anticipated DC is carlos AM. POC followed. is at the bed side.
[2019-05-24 03:52] LABS: ABSOLUTE NEUTROPHILS 7.5 thou/uL (1.4-8.2); BASOPHILS 0.1 % (0.0-2.0); HEMATOCRIT 36.4 % (42.0-52.0); HEMOGLOBIN 12.2 gm/dL (14.0-18.0); LYMPHOCYTES 4.9 % (24.0-44.0); MCHC 33.3 g/dL (28.0-37.0); MONOCYTES 6.8 % (1.0-8.0); PLATELET COUNT 203 thou/uL (150-400); POLYS 88.2 % (36.0-66.0); RBC 4.05 mil/uL (4.50-6.00); RDW 16.3 % (10.5-14.5); WBC 8.5 thou/uL (4.0-11.0)
[2019-05-24 04:01] LABS: INR 2.5; PROTIME 25.8 Seconds (9.3-11.4)
[2019-05-24 04:05] LABS: ALBUMIN 3.2 g/dL (3.4-5.0); CALCIUM 8.2 mg/dL (8.5-10.1); CREATININE 1.3 mg/dL (0.7-1.3); POTASSIUM 4.7 mmol/L (3.5-5.1); TOTAL BILIRUBIN 0.3 mg/dL (<0.1-1.0); TOTAL PROTEIN 6.5 g/dL (6.4-8.2)
[2019-05-24 04:56] VITALS: BP 110/58
--- NOTE | 2019-05-24 05:41 | NUR ---
ASSUMED PT CARE AT 1899. PT ON BED REST UNTIL 2029. VITAL SIGNS STABLE, ASSESSMENT CHARTED. PT COMPLAINED OF THROAT SORENESS/PAIN RATED AT 3, PT REFUSED PAIN MEDICATION. GROIN SITES CLEAN, DRY AND INTACT. PT OFF BEDREST AT 2034, DENTON DISCONTINUED. PT VOIDED WELL AFTER DENTON DISCONTINUED. PT REQUESTED TO TAKE HOME MEDICATION, AZO FOR POST CATH PAIN. HE MENTIONED THAT HE USUALLY TAKES IT AFTER HE HAS A URINARY CATHETER TAKEN OUT. EDUCATION PROVIDED ABOUT TAKEN HOME MEDS. PT INSISTED. PT MONITORED AFTER MEDICATION WAS TAKEN. RESTED WELL THROUGH THE NIGHT. NO FURTHER COMPLAINTS.PROGRESSING TOWARD PLAN OF CARE. WILL CONTINUE TO MONITOR. POSSIBLE DISCHARGE IN AM.
[2019-05-24 07:15] VITALS: BP 111/59
[2019-05-24] MEDS ORDERED: METOPROLOL SUCC50 MG PO (09:57)
[2019-05-24] MEDS ORDERED: PANTOPRAZOLE SO40 M1 PO (09:57)
[2019-05-24 10:41] VITALS: BP 111/59
--- NOTE | 2019-05-24 12:50 | NUR ---
ASSESSMENT DOCUMENTED. PT ALERT AND ORIENTED. VSS. DENIED HAVING PAIN OR DISCOMFORT. FRESH BLOOD NOTED ON THE RIGHT GROIN THIS AM. DRESSING CHANGED. DR. SOFIA AWARE. ORDERS GIVEN TO DISCHARGE PT TO HOME. DISCHARGE INSTRUCTIONS GIVEN TO PT. PT VERBERLIZE UNDERSTANDING.
== END 2019-05-24 13:09 | disposition home or self-care (01) ==
LOC: CATH 06:25 → 2N 14:58 → CATH 15:50 → ENTRNSPT 05-24 12:47 → EDTRNSPTSTS 05-24 12:56 → 2N 05-24 13:09
PROVIDERS: Nurse Practitioner; ADMIT Internal Medicine Cardiovascular Disease
DX: I48.4 Atypical atrial flutter (principal); Z79.899 Other long term (current) drug therapy
CPT/HCPCS: 62110; 62900; 65020; 65040; 70005

== ENCOUNTER 2019-11-05 07:59 | Inpatient (IN) | payer OTHER ==
[2019-10-31 08:53] LABS: HEMATOCRIT 40.3 % (42.0-52.0); HEMOGLOBIN 13.7 gm/dL (14.0-18.0); MCH 30.9 pg (26.0-34.0); MCHC 33.9 g/dL (28.0-37.0); MCV 91.1 fL (80.0-100.0); RBC 4.42 mil/uL (4.50-6.00); RDW 16.4 % (10.5-14.5); WBC 6.8 thou/uL (4.0-11.0)
[2019-10-31 08:58] LABS: ALBUMIN 3.8 g/dL (3.4-5.0); CALCIUM 9.1 mg/dL (8.5-10.1); POTASSIUM 5.4 mmol/L (3.5-5.1)
[2019-10-31 09:45] LABS: PROTIME 58.7 Seconds (9.3-11.4)
[2019-10-31 09:55] LABS: INR 5.7
[2019-10-31 10:45] LABS: URINE BILIRUBIN NEGATIVE (Negative); URINE BLOOD NEGATIVE (Negative); URINE CLARITY CLOUDY; URINE COLOR YELLOW; URINE GLUCOSE-RANDOM* 1+ (Negative); URINE KETONES NEGATIVE (Negative); URINE LEUKOCYTES-REFLEX NEGATIVE (Negative); URINE NITRITE-REFLEX NEGATIVE (Negative); URINE PROTEIN (DIPSTICK) NEGATIVE (Negative); URINE SPECIFIC GRAVITY 1.025 (1.005-1.035)
[2019-10-31 23:10] LABS: GLYCOHEMOGLOBIN (HGB A1C) 7.6 % (4.8-5.6)
[~2019-11-05] VITALS: Ht 193 cm; Wt 117.9 kg
[~2019-11-05 07:59] MED LIST changes: +ASPIR 8181 M1 PO; +METOPROLOL SUCC50 MG PO; +PANTOPRAZOLE SO40 M1 PO; +PHENERGAN 25 MG25 M1 PO
[2019-11-05 09:16] VITALS: BP 133/69
[2019-11-05 10:07] LABS: PROTIME 10.7 Seconds (9.3-11.4)
[2019-11-05 15:35] VITALS: BP 105/61
[2019-11-05 16:07] VITALS: BP 148/78
--- NOTE | 2019-11-05 18:42 | NUR ---
ASSUMED CARE OF THE PT AT 1500. PTS PAIN IS BEING CONTROLLED BY PAIN MEDICATION, SEE EMAR. PT REFUSED PT UNTIL PAIN IS UNDER CONTROL. PT IS A BS AND AND IS BEING CONTROLLED BY SCHEDULED MEDS, SEE EMAR. PT IS REG DIET AND TOLERATED DINNER WELL. KIRA DRESSING, ICE PACK AND KIAR DRESSING IN PLACE. FALL PRECAUTIONS IN PLACE, BED IN THE LOWEST POSITION AND CALL LIGHT IS WITHIN REACH. WILL CONTINUE TO MONITOR THE PT.
[2019-11-05 19:35] VITALS: BP 129/743
[2019-11-06 00:05] VITALS: BP 107/65
--- NOTE | 2019-11-06 05:07 | NUR ---
PT AOX4. PT REPORTS PAIN 6/10 IN RIGHT HIP. PT RECEIVEING SCHEDULED MORPHINE, PRN Q4HR NORCO AND PRN Q4HR OXYCODONE. PT REQUIRES X1 ASST WITH TRANSFERS AND AMBULATION. PT PRESENTS SUPINE WITH ABDUCTOR PILLOW BETWEEN LEGS WHILE IN BED. PT REPORTS LAST URINATION AT 1100, PRIOR TO SURGERY. PT ASSISTED TO USE URINAL, NO OUTPUT. BLADDER SCANNED WITH 800ML. 16FR DENTON PLACED, CATHETER PATENT. PT REPORTS RELIEF WITH CATHETER IN PLACE, BLADDER NONDISTENDED. PT TOLERATING PO INTAKE WITHOUT ISSUE. PT RESTING THROUGHOUT SHIFT WITHOUT INTERRUPTION OR OBSERVATION OF PAIN OR SOA. PT ENCOURAGED TO NOTIFY STAFF FOR ALL CONCERNS. BED IN LOWEST POSITION, CALL LIGHT WITHIN REACH, BED ALARM ON. WILL CONTINUE TO MONITOR.
[2019-11-06 05:15] VITALS: BP 119/63
[2019-11-06 05:55] LABS: HEMATOCRIT 30.6 % (42.0-52.0); HEMOGLOBIN 10.3 gm/dL (14.0-18.0); MCH 30.8 pg (26.0-34.0); MCHC 33.7 g/dL (28.0-37.0); MCV 91.2 fL (80.0-100.0); RBC 3.35 mil/uL (4.50-6.00); RDW 16.4 % (10.5-14.5); WBC 5.9 thou/uL (4.0-11.0)
[2019-11-06 08:00] VITALS: BP 124/71
--- NOTE | 2019-11-06 10:37 | NUR ---
PT. CARE ASSUMED AT 0700. A&Ox4. pt post op day 1. PT. PAIN CONTROLLED WITH MORPHINE XR AND PAIN MEDICATION WITH PT. PT EVALUATION TODAY. PT. ACHS. NEEDED INSULIN WITH BREAKFAST. NO NAUSEA THIS MORNING. NEW ICE PACK PROVIDED. SLIDING SCALE ADDED. IV PATENT WITH NO REDNESS OR SWELLING ORESENT. FLUIDS RUNNING.. DENTON PATENT WITH GOOD OUTPUT. BED LOCKED IN LOW POSITION WITH BED ALARM ON. CALL LIGHT IN REACH
--- NOTE | 2019-11-06 13:16 | NUR ---
ASSESSMENT-PT LIVES AT HOME WITH HIS BUT HAS MANY STEPS IN HIS HOME THAT HE IS CONCERNED ABOUT. HE WOULD LIKE TO HAVE A SHORT STAY ON 5N THEN DC TO HOME WITH OUTPT THERAPY AT [facility]. HIS WOFE WORKS THERE A RN. PT HAS A ROLLER WALKER FROM PREVIOUS SURGERY, BSC, SOCK JESSICA BELLE AND LAURA BENITEZ. FOLLOWING TO ASSIST WITH DC PLANNING. CASE DISCUSSED WITH SLEEPING CAR SERVICE ATTENDANT.
[2019-11-06 18:17] VITALS: BP 85/50
--- NOTE | 2019-11-06 19:18 | NUR ---
ASSUMED CARE OF PT APPROX 1600, VSS, DENIES PAIN. KIRA DRESSING TO RIGHT HIP REMAINS C/D/I, PATIENT HAS SENSATION IN LEG, CAP REFILL WNL, SKIN COLOR APPROPRIATE. NO SIGNS OF DISTRESS. PT ABD DISTENDED AND FIRM, BOWEL SOUND ACTIVE X4, PT DENIES NAUSEA AT THIS TIME. IV IN RIGHT FA. WILL CONTINUE TO MONITOR.
[2019-11-06 20:14] VITALS: BP 94/53
[2019-11-06 23:03] VITALS: BP 96/51
--- NOTE | 2019-11-07 03:39 | NUR ---
ASSUMED PT CARE ON 11/06/19. PT IS A&O X4. THE PT'S BP IS LOW ON THE BASELINE. PT IS LAYING IN THE BED. PT HAS A COMPLAINT OF PAIN AT A LEVEL OF 2 ON THE SCALE OF 1-10. THE PT REFUSED THE MORPHINE BUT TOOK THE REST OF THTE SCHEDULED MEDICATION. PT'S B/S WAS 95 SO THERE WAS NOT INDICATION FOR INSULIN. THE PT'S HAS COMPLAINTS OF CONSTIPATION AND NAUSEA. THE PT WANTED A PROMETHAZINE SUPPOSITORY, THIS WAS ADMINISTERED. I EXPLAINED TO THE PT THAT IF WE GET UP AND WALK IT COULD POSSIBLY HELP WITH THE CONSTIPATION. THE PT REFUSED. HE STATED THAT HE WANTED TO HAVE A BM AND GET SOME REST. THE PT SAID THAT HE IS NO LONGER NAUSEOUS. I CALLED THE DRY BOX OPERATOR AND SHE GAVE A DAILY PRN ORDER FOR MIRALAX AND AN FLEETS ENEMA IF THE MIRALAX IS INEFFECTIVE. I GAVE THE PT THE MIRALAX IN PRUNE JUICE. THE PT HAS NOT HAD A BM YET. THE DRY BOX OPERATOR SAID THAT IF THE PT HAS NOT HAD A BM BY THE MORNING TIME TO GET A KUB. PT IS RESTING IN THE ROOM WITH TH LIGHTS OFF AND THE DOOR SHUT. WILL CONTINUE TO MONITOR.
[2019-11-07 07:19] LABS: CALCIUM 9.1 mg/dL (8.5-10.1); CREATININE 1.3 mg/dL (0.7-1.3); POTASSIUM 4.1 mmol/L (3.5-5.1)
[2019-11-07 07:20] LABS: INR 1.1; PROTIME 11.1 Seconds (9.3-11.4)
[2019-11-07 07:31] VITALS: BP 101/60
[2019-11-07 08:40] LABS: HEMATOCRIT 29.7 % (42.0-52.0); HEMOGLOBIN 9.9 gm/dL (14.0-18.0); MCH 30.4 pg (26.0-34.0); MCHC 33.3 g/dL (28.0-37.0); MCV 91.3 fL (80.0-100.0); RBC 3.26 mil/uL (4.50-6.00); RDW 16.2 % (10.5-14.5)
--- NOTE | 2019-11-07 12:17 | NUR ---
Resumed care at 0700. PT is A&Ox4. He reports feeling full in his abdomen and expressed nausea. PT proceeded to vomit reddish brown emesis, approximately 250cc, after AM medications. PRN zofran was administered IVP to help decrease nausea. Relief noted. Provider was notified. PT was taken down for a KUB via wheelchair. Dr. Wilhelm on floor to assess PT. He ordered for the soto to be discontinued. Nurse removed soto with balloon delflated and intact. PT requested azo to help decrease burning with urination after soto removal. Nurse contacted provider who ordered pyridium to help with urinary comfort. PT is currently resting in bed. His call light is within reach and the bed is locked. Nurse will continue to monitor.
--- NOTE | 2019-11-07 12:26 | NUR ---
SW reviewed chart and spoke with nursing and hospitalist. Pt [facility]. Pt is s/p right ZAMAZM. Pt with abdominal distension earlier today and went for a KUB. SW discussed case with [facility] rehabilitation [facility] manager, as pt and family are intersted in going to [facility] prior to discharge. JANNETTE is following to assist as needed with discharge planning.
--- NOTE | 2019-11-07 14:58 | NUR ---
THIS RN NOTIFIED DR AGUILAR OF BLOOD SUGAR DROPPING TO 43, RECEIVED ORDER TO GIVE 1 AMP OF DEXTROSE. GIVEN ORDERED TO RIGHT FOREARM. WILL RECHECK IN 15 MINUTES.
[2019-11-07 16:29] VITALS: BP 110/58
--- NOTE | 2019-11-07 18:45 | NUR ---
I AGREE WITH NURSING ASSESSMENT AND NURSING NOTE DONE BY NATALYA/SUMAN.
[2019-11-07 20:18] VITALS: BP 105/60
--- NOTE | 2019-11-07 22:14 | NUR ---
Assumed pt care at 1900. Pt is A/OX4.VSS. Pt c/o Nausea, abd still distended and firm. Pt offered enema and agreeable with it,medication administered;pt passed a small BM and a lot gas/belching and verbalizes a little relief. Medicated for nausea and pain at this time,will monitor effectiveness. Blood sugar 53,D5 25ml given and BS up to 207. IV reinserted on RFA.
[2019-11-08 05:55] LABS: HEMATOCRIT 29.4 % (42.0-52.0); HEMOGLOBIN 9.9 gm/dL (14.0-18.0); MCH 30.6 pg (26.0-34.0); MCHC 33.7 g/dL (28.0-37.0); MCV 90.9 fL (80.0-100.0); RBC 3.23 mil/uL (4.50-6.00); RDW 15.7 % (10.5-14.5); WBC 6.3 thou/uL (4.0-11.0)
[2019-11-08 06:18] LABS: INR 1.1; PROTIME 11.4 Seconds (9.3-11.4)
[2019-11-08 07:50] VITALS: BP 117/69
--- NOTE | 2019-11-08 14:02 | NUR ---
SW reviewed chart and spoke with nursing and attending physician. Pt is progressing towards goals for discharge. Discharge home is anticipated for tomorrow. SW discussed case with rehabilitation team lead. Pt is too high level for admission to . Recommendation made for pt to go home with HH. SW met with pt at bedside to discuss discharge plan. Pt is aware and agreeable with HH services. SW provided options for HH. No preference voiced. Pt has [employer] insurance. [facility]. Pt is agreeable with referral to [facility]. Pt lives in [place]. [facility] and notified liaison. Pt has a roller walker and his PCP is Dr. Issa Hammonds. JANNETTE is following to assist as needed with discharge planning.
[2019-11-08 18:29] VITALS: BP 110/64
[2019-11-08 19:16] VITALS: BP 90/51
--- NOTE | 2019-11-08 19:30 | NUR ---
ASSUMED CARE OF PATIENT AT 0715, PATIENT ALERT AND ORIENTED X 4. PATIENT C/O PAIN WITH RIGHT HIP, REFUSED MORPHINE ER THIS AM. PATIENT REFUSED BREAKFAST AND LUNCH, HE HAD CLEAR LIQUIDS FOR BOTH MEALS, AND TOLERATED W/O NAUSEA. PATIENT DID EAT DINNER 100% W/O NAUSEA. BLOOD SUGAR MONITORING ORDERED, LAST BLOOD SUGAR 53, PATIENT HAD DINNER AND GAVE 2 ORANGE JUICES, BLOOD SUGAR RECHECKED AND 124. PATIENT HAS LEFT FOREARM IV WITH D51/2 NS AT 100CC/HR. INR 1.1, COUMADIN 5MG PO GIVEN. PATIENT GIVEN HYDROXYZINE 50 MG PO GIVEN, PATIENT STATES NO RELIEF, BUT WANTS TO WAIT UNTIL LATER FOR MORE PAIN MEDS. AT BEDSIDE AFTER DINNER. WILL CONTINUE TO MONITOR.
--- NOTE | 2019-11-09 02:56 | NUR ---
Assumed pt care at 1900. Pt A/OX4,VSS. Pt c/o pain to right hip hesitant about taking pain meds but encouraged to LOP 8/10 medicated with Percocet with relief reported. Pt complain of nausea, medicated with Promethazine with relief reported at HS. Voiding adequately per urinal. KIRA dsg in place on Right hip C/D/I. Pt encouraged to ambulate before HS but declined. Resting quietly at this time with no distress noted. Call light placed within reach. Fall precautions in place. Will continue to monitor pt.
[2019-11-09 07:25] VITALS: BP 123/70
[2019-11-09 07:30] LABS: INR 1.1; PROTIME 11.4 Seconds (9.3-11.4)
--- NOTE | 2019-11-09 09:18 | NUR ---
DR AGUILAR HERE TO SEE PATIENT STATES TO HAVE PATIENT BE NPO AND HOLD AM MEDS. HE PUT IN CONSULT FOR GI. PT GIVEN ZOFRAN AND B12 IM.
[2019-11-09 14:15] VITALS: BP 113/58
--- NOTE | 2019-11-09 14:18 | NUR ---
DISCHARGE PLANNING. POSSIBLE WEEKEND DISCHARGE. PATIENT DISCHARGING TO HOME WITH [facility]. CALL PLACED TO [facility], SPOKE WITH CORRINE. NOTIFIED OF POSSIBLE WEEKEND DISCHARGE. UNIT CONTACT NUMBER PROVIDED TO HER. [facility] NUMBER [phone] FAX [phone] SHOULD PATIENT DISCHARGE OVER THE WEEKEND, PLEASE FAX COMPLETED DISCHARGE/HOME HEALTH ORDERS AND DISCHARGE SUMMARY TO [facility]. FAX NUMBER LISTED ABOVE. THANK YOU.
--- NOTE | 2019-11-09 14:20 | NUR ---
CALLED CONSULT TO DR RICHARDSON'S OFFICE DR CABEZAS UPKEEP WORKER OFFICE TO LET HIM KNOW ABOUT CONSULT CALLED [phone]
[2019-11-09 14:21] VITALS: BP 123/70
--- NOTE | 2019-11-09 14:32 | NUR ---
SW reviewed chart and spoke with nursing and attending physician. Pt is slowly progressing towards goals for discharge. GI consulted today. Pt may be scoped later today or tomorrow. [facility] on [facility] when discharged. finished goods planner updated intake at to notify of possible weekend discharge. Contact info for HH placed in pt's discharge summary. Final discharge orders/summary will need to be faxed when available. SW is available to assist should needs arise. [facility]---
--- NOTE | 2019-11-09 16:10 | NUR ---
CALLED [facility] AT THIS TIME OFFICE STATED THEY WOULD PAGE DR LOPEZ.
--- NOTE | 2019-11-09 18:45 | NUR ---
DR LOPEZ HERE TO SEE PATIENT WROTE NEW ORDERS SEE CHART.
[2019-11-09 19:30] VITALS: BP 108/60
--- NOTE | 2019-11-10 04:36 | NUR ---
PATIENT ALERT AND ORIENTED X4. AT BEDSIDE IN EARLY EVENING. IVF INFUSING W/O COMPLICATION. BS MONITORED PER ORDER. DRESSING DRY/INTACT. MEDICATED FOR PAIN X2 DURING THE NIGHT WITH GOOD RESULTS. ALSO USING ICE BAG TO RIGHT HIP. SLEPT WELL DURING THE NIGHT. JACQUES HOSE OFF FOR A FEW HOURS DURING THE NIGHT, REPLACED THIS AM. WILL MONITOR.
[2019-11-10 05:36] LABS: INR 1.2; PROTIME 12.2 Seconds (9.3-11.4)
[2019-11-10 06:55] VITALS: BP 112/63
[2019-11-10 09:49] LABS: CALCIUM 8.4 mg/dL (8.5-10.1); CREATININE 0.9 mg/dL (0.7-1.3); MAGNESIUM 1.5 mg/dL (1.8-2.4); POTASSIUM 4.3 mmol/L (3.5-5.1)
[2019-11-10 19:04] VITALS: BP 103/55
--- NOTE | 2019-11-10 19:33 | NUR ---
ASSUMED CARE OF PATIENT AT 0715, PATIENT A&O X 4. PATIENT UP WITH SBA WITH WALKER AND GAIT BELT. PATIENT DENIES PAIN THIS AM, BUT WAS GIVEN TRAMADOL PIOR TO PT, AND HYDROCODONE THIS AFTERNOON PRIOR TO PT, WAS GIVEN TRAMADOL AFTER DINNER PER PATIENT REQUEST WITH GOOD RELIEF ALL 3 TIMES. PATIENT HAS RGHT FOREARM IV WITH D5 1/2 NS AT 100CC/HR. BLOOD SUGAR MONITORING ORDERED, LAST BS 133, NO S/S INSULIN GIVEN. PATIENT VOIDS PER URINAL. NO BM THIS SHIFT, PASSING GAS. PATIENT DIET ADVANCED TO SOFT AT LUNCH AND DINNER, AND TOLERATED W/O DIFFICULTY, NO NAUSEA REPORTED. INR 1.2, COUMADIN 5 MG PO GIVEN. WILL CONTINUE TO MONITOR.
--- NOTE | 2019-11-11 04:33 | NUR ---
PATIENT ALERT AND ORIENTED X4. UP WITH ASSIST OF WALKER. MEDICATED FOR PAIN WITH GOOD RESULTS. BS MONITORED PER ORDER. IVF INFUSING W/O COMPLICATION. DRESSING DRY AND INTACT. PATIENT WASHED HIMSELF UP IN THE BATHROOM AND CHANGED HIS CLOTHES - STATES THAT HE FEELS MUCH BETTER. RESTING QUIETLY. WILL MONITOR.
[2019-11-11 05:34] LABS: INR 1.2; PROTIME 12.7 Seconds (9.3-11.4)
[2019-11-11 08:00] VITALS: BP 100/56
[2019-11-11] MEDS ORDERED: REGLAN10 MG PO (08:39)
[2019-11-11] MEDS ORDERED: TRAMADOL 50 MG50 MG PO (08:39)
[2019-11-11 08:44] VITALS: BP 100/56
--- NOTE | 2019-11-11 16:13 | NUR ---
PT IS AOX4, VSS, PAIN CONTROLLED WITH ORAL PAIN ANALGESIC. DRESSING DRY & INTACT, AMBULATES WITH WALKER. PT TOLERATING REGULAR DIET. PT DISCHARGED HOME WITH , RECEIVED PRESCRIPTIONS, AND D/C INSTRUCTIONS. IV D/C'D AND TRANFERRED TO CAR BY STAFF.
--- NOTE | 2019-11-12 13:07 | NUR ---
PT DISCHARGED OVER WEEKEND DC ORDERS/SUMMARY FAXED TO [facility] SPOKE WITH CHRIS IN INTAKE SHE RECEIVED DC ORDERS AND WILL NOTIFY PT TIME OF VISITS.
--- NOTE | 2019-11-14 08:11 | HC ---
[facility] [place] [address] CONSULTATION Name: HEDY LABOY Room #: 403-P [facility] IN M.R.#: [id number] Admission: 11/05/19 Attend Phys: Guru Cook MD Discharge: 11/11/19 Date of : 55 Report #: [id number] THIS REPORT FOR: //name// CC: Dr. Thu Wilhelm Physician staff JAMAL Cook MD DATE OF SERVICE: 11/09/2019 HISTORY OF PRESENT ILLNESS: The patient is a 64-year-old male with a history of right total hip arthroplasty for arthritis on 11/05/2019. The patient was doing well postoperatively, began having nausea and vomiting. After several days, this has not improved with IV Zofran. He was given one dose of Reglan. He has been on narcotics, but these have now been held for the last approximately 24 hours. He underwent a KUB yesterday showing gaseous distention of the large and small bowel without gross evidence of bowel obstruction. That KUB was done on . Repeat KUB on the shows findings suggestive of improved ileus. There is increased gaseous distention of the stomach, gastric outlet obstruction not excluded. The patient has not had a bowel movement since last Tuesday, but he also of note was given an enema from that time, he has been passing gas. He has been n.p.o. today. He has no further vomiting at this time. He denies any significant abdominal pain. He denies any nausea, vomiting or similar symptoms prior to this hospitalization recently. He underwent an EGD and colonoscopy reportedly earlier this year at [facility]. I do not have a copy of these results, but he states these were basically negative. He denies any recent diarrhea or constipation. He denies any blood in his stools. Currently, denies any chest pain or shortness of breath. No fevers or chills. PAST MEDICAL HISTORY: Right total hip ZAMZAM on 11/05/2019, diabetes type 2, history of AFib, coronary artery disease, history of stents, previous left total hip several years ago. REVIEW OF SYSTEMS: As per HPI. ALLERGIES: SULFA. CURRENT MEDICATIONS: Tylenol p.r.n., tramadol p.r.n., IV fluids, tamsulosin, MiraLax daily, Coumadin, insulin sliding scale, metoprolol, aspirin, Plavix, lisinopril, gabapentin, docusate, Lipitor, diltiazem, metformin, hydroxyzine, oxycodone p.r.n., hydrocodone p.r.n., senna. FAMILY HISTORY: Negative for colon cancer. [address] [address] CONSULTATION Name: HEDY LABOY Room #: 403-P [facility] JOHNNY M.RRosa#: [id number] Admission: 11/05/19 Attend Phys: Guru Cook MD Discharge: 11/11/19 Date of : 55 Report #: [id number] SOCIAL HISTORY: Denies any tobacco, reports occasional alcohol. PHYSICAL EXAMINATION: VITAL SIGNS: Temperature is 97.9, pulse 75, blood pressure 123/70, respiratory rate is 18. GENERAL: He is alert and oriented x 3, in no acute distress. HEENT: Sclerae nonicteric. Oropharynx clear. NECK: Supple, without lymphadenopathy. CARDIOVASCULAR: Regular rate. CHEST: Clear to auscultation anteriorly bilaterally. ABDOMEN: Soft. He has active bowel sounds. He is nontender. He is mildly distended. EXTREMITIES: No cyanosis, clubbing or edema. LABORATORY DATA: From 11/07/2019, sodium 135, potassium 4.1, chloride 100, bicarbonate 26, BUN 16, creatinine 1.3. WBC 6.3, hemoglobin 9.9, platelet count is 194. ASSESSMENT AND PLAN: Nausea and vomiting. Suspect this is secondary to ileus, likely multifactorial, recent surgery, recent narcotics. The patient is nonambulatory at this time. No previous history of nausea, vomiting prior to surgery. KUB consistent with ileus and not obstruction. There is some gaseous distention. He has not responded to Zofran. I would recommend changing Reglan p.r.n. to 10 mg IV q. 6 hours on a scheduled basis and we will start clear liquids at this time. If he has continued symptoms, could consider an upper endoscopy for further evaluation. Of note, he had a normal EGD and colonoscopy within the last year apparently. We will continue to follow. Thank you for allowing me to participate in his care. <ELECTRONICALLY SIGNED> By: Darian Rios MD 11/14/19 0811 [id number] Darian Rios MD /nt
--- NOTE | 2019-11-14 14:33 | O ---
[facility] [place] [address] OPERATIVE REPORT Name: HEDY LABOY Room #: 403-P [facility] IN M.R.#: [id number] Admission: 11/05/19 Attend Phys: Guru Cook MD Discharge: 11/11/19 Date of : 55 Report #: [id number] THIS REPORT FOR: //name// CC: Physician staff JAMAL KING Guru Cook DATE OF SERVICE: 11/05/2019 PREOPERATIVE DIAGNOSIS: Right hip osteoarthritis. POSTOPERATIVE DIAGNOSIS: Right hip osteoarthritis. PROCEDURE: Right total hip arthroplasty. SURGEON: Guru Cook MD PBX SUPERVISOR: Josefina Ochoa PA-C. ANESTHESIA: General. IMPLANTS: Urena and Nephew size 14 high offset Synergy press fit stem, a size 60 R3 acetabular cup with one acetabular screw and a size 40+8 Oxinium head. ESTIMATED BLOOD LOSS: 100 mL. COMPLICATIONS: None. SPECIMENS: None. INDICATIONS FOR PBX SUPERVISOR: Throughout the case, extensive retraction and manipulation of the hip was required. This was afforded to me by my development assistant. INDICATIONS FOR PROCEDURE: The patient is a 64-year-old gentleman with severe right hip osteoarthritis. He had failed conservative measures for this and after discussion with him, he elected for right total hip arthroplasty. DESCRIPTION OF PROCEDURE: Risks, benefits, alternatives, complications were discussed in detail with the patient including but not limited to risk of anesthesia, risk of damage to nerves, arteries, blood vessels, risk for infection, bleeding, risk for continued hip pain, leg length discrepancy, instability and need for reoperation. Informed consent was obtained from the patient. The right hip was appropriately marked in the preoperative holding area. IV Ancef was given for preoperative antibiotics. He was brought to the operating room and placed in supine position on operating room table. General anesthesia was induced without complication. He was then placed in the left [facility] [address] [place] [address] OPERATIVE REPORT Name: NARDAHEDY Room #: 403-P [facility] IN M.R.#: [id number] Admission: 11/05/19 Attend Phys: Guru Cook MD Discharge: 11/11/19 Date of : 55 Report #: [id number] lateral decubitus position with the right hip uppermost. Right hip and lower extremity were prepped and draped in normal sterile fashion. Timeout was performed properly identifying the patient and procedure as well as the instrumentation. All in the operating room were in agreement. Standard posterior approach to the hip was made with 10 blade through the skin. Dissection was taken down to the fascia with Bovie cautery. Malloy elevator was used to clean the fascia and fresh #10 blade was used to make a fascial incision. This was taken proximally and distally with curved Salinas scissor. Charnley retractor was placed. Trochanteric bursa was taken down with Bovie cautery. Piriformis tendon was identified, tagged and taken down with Bovie cautery. Short external rotators were also taken down with Bovie cautery. Capsulotomy was made and capsule ends were tagged for later repair. Hip was dislocated and there was extensive osteoarthritic change in femoral head. Femoral neck cut was made 1 cm proximal to lesser trochanter based on preoperative templating. Femoral head was removed. Deep acetabular retractors were placed. Labrum was removed sharply. Pulvinar was removed with Bovie cautery. Acetabulum was then sequentially reamed up to a size 60, at which point, there was excellent bleeding cancellous bone. This was trialed with a size 59 trial and found to have a good fit. Final size 60 R3 acetabular cup was placed and seated. One acetabular screw was placed for backup fixation and a polyethylene liner for a 40 head was placed. Attention was then turned to the femur. This was reamed and broached up to a size 14, at which point, the size 14 broach was stable, was trialed with a high offset neck and a 40+0 head. Hip was reduced, taken through range of motion, found to be stable, found to have short leg length on the right compared to left. Hip was dislocated and we trialed a +8 neck. Hip was reduced, taken through range of motion, found to be stable, found to have equal leg lengths. Hip was dislocated and broach was removed. Final size 14 high offset Synergy press fit stem was placed and seated. This was then trialled with a 40+8 head. Hip was reduced, taken through range of motion, found to be stable, found to have equal leg lengths. Hip was dislocated one last time and the wound was thoroughly irrigated with saline ____ ropivacaine, epinephrine and Toradol was ____. <ELECTRONICALLY SIGNED> By: Guru Cook MD 11/14/19 1433 1304 [id number] Guru Cook MD /nt
== END 2019-11-11 16:00 | disposition home health service (06) | DRG 470 ==
LOC: PRE 07:59 → TBA 08:35 → PRE 09:38 → 4S 15:06 → PRE 17:59 → 4N 11-06 16:13
PROVIDERS: Hospitalist; Nurse Practitioner Acute Care; ADMIT Orthopaedic Surgery
PROC: 0SR906A Replacement of Right Hip Joint with Oxidized Zirconium on Polyethylene Synthetic Substitute, Uncemented, Open Approach (ICD-10-PCS; principal; 2019-11-05)
DX: M16.11 Unilateral primary osteoarthritis, right hip (principal); I48.92 Unspecified atrial flutter; K56.7 Ileus, unspecified; I25.10 Atherosclerotic heart disease of native coronary artery without angina pectoris; I48.91 Unspecified atrial fibrillation; R33.9 Retention of urine, unspecified; E11.649 Type 2 diabetes mellitus with hypoglycemia without coma; Z88.2 Allergy status to sulfonamides; Z95.2 Presence of prosthetic heart valve; Z95.5 Presence of coronary angioplasty implant and graft
CPT/HCPCS: 10102; 10790; 50010; 50101; 50382; 50414; 51412; 53000; 53078; 53368; 56524; 56528; 56530; 57095; 57103; 62110; 62900; 70005